=== PATIENT | female | born 1975 | race Caucasian/White ===

== ENCOUNTER 2017-02-23 13:49 | Emergency (ER) | payer MEDICAID, SELFPAY ==
[2017-02-23] MEDS ORDERED: Ketorolac Tromethamine 60 MG/2 ML VIAL ONE (14:39)
== END 2017-02-23 14:40 | disposition home or self-care (01) ==
LOC: MADERS 13:49
DX: M54.41 Lumbago with sciatica, right side (principal); K02.9 Dental caries, unspecified; E11.9 Type 2 diabetes mellitus without complications; F17.210 Nicotine dependence, cigarettes, uncomplicated
CPT/HCPCS: 96372; J1885